=== PATIENT | female | born 1995 | race Two or more races ===

== ENCOUNTER 2022-02-09 13:07 | Emergency (ER) | payer OTHER ==
[~2022-02-09] VITALS: Ht 154.9 cm; Wt 123.4 kg
== END 2022-02-09 20:41 | disposition home or self-care (01) ==
LOC: ER 13:07
DX: N83.202 Unspecified ovarian cyst, left side (principal); N83.8 Other noninflammatory disorders of ovary, fallopian tube and broad ligament; R10.9 Unspecified abdominal pain